=== PATIENT | male | born 1995 | race Caucasian/White ===

== ENCOUNTER 2018-12-27 23:12 | Emergency (ER) | payer MEDICAID ==
[~2018-12-27] VITALS: Ht 175.3 cm; Wt 81.8 kg
[2018-12-27 23:51] LABS: BASO % 0.2 % (0.0-2.0); EOS % 0.1 % (0-4.0); GRAN # 14.4 (1.4-6.5); GRAN % 87.1 % (42.2-75.2); HEMOGLOBIN 17.8 g/dl (13.5-18.0); LYMPH # 1.2 (1.2-3.4); MEAN CELL VOLUME 84 fl (80.0-100.0); MEAN CORPUSCULAR HEMOGLOBIN 28 pg (27.0-31.0); MEAN CORPUSCULAR HGB CONC 34 g/dl (33.0-37.0); MEAN PLATELET VOLUME 11.1 fl (7.4-10.4); MONO # 0.9 (0.1-0.6); MONO % 5.2 % (1.7-9.3); PLATELET COUNT 269 K/mm3 (130-400); RED BLOOD COUNT 6.28 M/mm3 (4.20-5.60)
[2018-12-27 23:53] LABS: COLLECTION METHOD CLEAN CATCH
[2018-12-27 23:53] LABS: HEMATOCRIT 52.9 % (42.0-52.0)
[2018-12-28 00:05] LABS: ALBUMIN 4.6 gm/dL (3.5-5.0); BILIRUBIN,TOTAL 1.3 mg/dL (0.0-1.0); C-REACTIVE PROTEIN 0.9 mg/dL (0.0-0.9); CALCIUM 9.1 mg/dL (8.4-10.2); CREATININE, serum 0.91 mg/dL (0.66-1.25); POTASSIUM 3.9 mmol/L (3.4-5.0); TOTAL PROTEIN 8.4 gm/dL (6.4-8.2)
[2018-12-28 01:03] LABS: MUCOUS Present /lpf; PH 8 (5-8); SQUAMOUS EPITHELIAL 0-2 /hpf; URINE APPEARANCE Clear; URINE BACTERIA None Seen /hpf; URINE BILIRUBIN Negative (NEGATIVE); URINE BLOOD Negative (NEGATIVE); URINE COLOR Yellow; URINE GLUCOSE Negative (NEGATIVE); URINE KETONE Negative (NEGATIVE); URINE LEUKOCYTE ESTERASE Negative (NEGATIVE); URINE NITRATE Negative (NEGATIVE); URINE PROTEIN(semi-quant) Negative (NEGATIVE); URINE RBC 0-2 /hpf; URINE UROBILINOGEN >=4.0 mg/dL (NEGATIVE)
[2018-12-28] MEDS ORDERED: ZOFRAN ODT4 MG PO (01:17)
[2018-12-28 01:58] VITALS: TEMP 99.9
[2018-12-28 02:32] VITALS: BP 103/53; PULSE 110
== END 2018-12-28 02:39 | disposition home or self-care (01) ==
LOC: COL.ER 23:12
PROVIDERS: Nurse Practitioner
DX: R10.84 Generalized abdominal pain (principal); R11.2 Nausea with vomiting, unspecified
CPT/HCPCS: J1885; J2405; J7030

== ENCOUNTER 2019-05-27 10:48 | Emergency (ER) | payer MEDICAID ==
[~2019-05-27] VITALS: Ht 175.3 cm; Wt 81.8 kg
[~2019-05-27 10:48] MED LIST: ZOFRAN ODT4 MG PO
[2019-05-27 10:52] VITALS: BP 132/77
[2019-05-27] MEDS ORDERED: BACTRIM DS 8001 TAB PO ×2 (13:10)
[2019-05-27 13:59] LABS: STREP SCREEN NEGATIVE
[2019-05-27 14:45] VITALS: PULSE 72; TEMP 97.5
== END 2019-05-27 14:46 | disposition home or self-care (01) ==
LOC: COL.ER 10:48
PROVIDERS: Nurse Practitioner Primary Care
DX: J02.9 Acute pharyngitis, unspecified (principal)

== ENCOUNTER 2019-08-27 01:54 | Emergency (ER) | payer MEDICAID ==
[~2019-08-27] VITALS: Ht 175.3 cm; Wt 84.1 kg
[~2019-08-27 01:54] MED LIST changes: +BACTRIM DS 8001 TAB PO
[2019-08-27 01:55] VITALS: TEMP 98.1
[2019-08-27 03:41] VITALS: BP 100/50; PULSE 110
== END 2019-08-27 04:00 | disposition short-term general hospital (02) ==
LOC: COL.ER 01:54
DX: S06.6X0A Traumatic subarachnoid hemorrhage without loss of consciousness, initial encounter (principal); R40.2412 Glasgow coma scale score 13-15, at arrival to emergency department; Y04.0XXA Assault by unarmed brawl or fight, initial encounter; Y92.511 Restaurant or cafe as the place of occurrence of the external cause
CPT/HCPCS: J1953; J2405; J7030

== ENCOUNTER 2019-11-04 15:48 | Emergency (ER) | payer BC | END 2019-11-04 16:45 | disposition left against medical advice (07) | LOC: COL.ER 15:48 | DX: Z72.9 Problem related to lifestyle, unspecified (principal) ==

== ENCOUNTER → 2020-04-02 | Outpatient (CLI) | payer BC | LOC: BHSO 13:57 | DX: F33.1 Major depressive disorder, recurrent, moderate (principal) ==

== ENCOUNTER 2022-12-20 22:49 | Emergency (ER) | payer SELFPAY ==
[~2022-12-20] VITALS: Ht 175.3 cm; Wt 90.9 kg
[2022-12-20 22:53] VITALS: TEMP 98.4
[2022-12-20 23:24] VITALS: BP 110/71; PULSE 89
== END 2022-12-20 23:25 | disposition home or self-care (01) ==
LOC: COL.ER 22:49
DX: S39.012A Strain of muscle, fascia and tendon of lower back, initial encounter (principal); M79.652 Pain in left thigh; M79.651 Pain in right thigh; Z28.310 Unvaccinated for COVID-19; X50.0XXA Overexertion from strenuous movement or load, initial encounter; Y92.59 Other trade areas as the place of occurrence of the external cause; Y99.0 Civilian activity done for income or pay